=== PATIENT | male | born 1960 | race Caucasian/White ===

== ENCOUNTER 2016-09-24 12:20 | Outpatient (RCR) | payer BC ==
[~2016-09-24 12:20] MED LIST: ASPI325T6 PO; CRESTOR40 MG PO; NORCO 325 MG-7.1 TAB PO; NORVASC 5MG5 MG/TAB PO; SYNTHROID 0.0.025 MG PO; ZESTRIL 10MG10 MG PO
== END 2016-09-27 12:45 | disposition still patient (30) ==
LOC: COL.CR 12:20
DX: Z48.812 Encounter for surgical aftercare following surgery on the circulatory system (principal); Z95.5 Presence of coronary angioplasty implant and graft

== ENCOUNTER 2017-04-12 11:25 | Day surgery (SDC) | payer BC ==
[~2017-04-12] VITALS: Ht 182.9 cm; Wt 95.9 kg
[2017-04-12 12:02] VITALS: BP 118/80; PULSE 59; TEMP 98.1
[2017-04-12] MEDS ORDERED: PLAVIX 75MG TAB75 MG PO (12:11)
[2017-04-12] MEDS ORDERED: LIPITOR 40MG TA40 MG PO (12:12)
[2017-04-12] MEDS ORDERED: COREG 6.256.25 MG/TA PO (12:12)
[2017-04-12] MEDS ORDERED: ZESTRIL 20MG TA20 MG PO (12:13)
[2017-04-12] MEDS ORDERED: ASPIRIN 81M81 MG/TA2 PO (12:13)
[2017-04-12] MEDS ORDERED: OMEGA-3 1000 MG1 CAP PO (12:14)
[2017-04-12] MEDS ORDERED: PHARMASSURE SA160 MG PO (12:15)
[2017-04-12 13:42] VITALS: BP 109/70; PULSE 68; TEMP 98.4
[2017-04-12 14:00] VITALS: BP 103/73; PULSE 59
[2017-04-12 14:15] VITALS: BP 115/75; PULSE 58
[2017-04-12 14:58] VITALS: BP 115/73; PULSE 53
== END 2017-04-12 14:35 | disposition home or self-care (01) ==
LOC: SDCO 11:25
DX: D12.3 Benign neoplasm of transverse colon (principal); D12.4 Benign neoplasm of descending colon; D12.0 Benign neoplasm of cecum; D12.2 Benign neoplasm of ascending colon; K57.30 Diverticulosis of large intestine without perforation or abscess without bleeding; K64.0 First degree hemorrhoids; I25.10 Atherosclerotic heart disease of native coronary artery without angina pectoris; I10 Essential (primary) hypertension; E78.00 Pure hypercholesterolemia, unspecified; Z86.010 Personal history of colon polyps; Z79.01 Long term (current) use of anticoagulants; Z95.5 Presence of coronary angioplasty implant and graft
CPT/HCPCS: OP; J2250; J3010; J7030

== ENCOUNTER 2021-02-12 06:56 | Day surgery (SDC) | payer BC ==
[2021-02-12] VITALS (13 sets, daily range): BP systolic 103–151; BP diastolic 56–88; PULSE 51–65; TEMP 98
[~2021-02-12] VITALS: Ht 183 cm; Wt 106.6 kg
[~2021-02-12 06:56] MED LIST changes: +ASPIRIN 81M81 MG/TA2 PO; +COREG 6.256.25 MG/TA PO; +LIPITOR 40MG TA40 MG PO; +OMEGA-3 1000 MG1 CAP PO; +PHARMASSURE SA160 MG PO; +PLAVIX 75MG TAB75 MG PO; +ZESTRIL 20MG TA20 MG PO
[2021-02-12 07:53] LABS: HEMOGLOBIN 14.3 g/dl (13.5-18.0); MEAN CELL VOLUME 91 fl (80.0-100.0); MEAN CORPUSCULAR HEMOGLOBIN 30 pg (27.0-31.0); MEAN CORPUSCULAR HGB CONC 33 g/dl (33.0-37.0); MEAN PLATELET VOLUME 9.6 fl (7.4-10.4); PLATELET COUNT 266 K/mm3 (130-400); RED BLOOD COUNT 4.75 M/mm3 (4.20-5.60); REDCELL DISTRIBUTION WIDTH-CV 12.8 % (11.5-14.5)
[2021-02-12 07:57] LABS: PROTHROMBIN TIME 10.9 SECONDS (9.7-12.8)
[2021-02-12 07:59] LABS: PARTIAL THROMBOPLASTIN TIME 29.2 SECONDS (26.0-37.0)
[2021-02-12 08:06] LABS: CALCIUM 9.1 mg/dL (8.4-10.2); CREATININE, serum 0.79 (0.66-1.25); POTASSIUM 4.3 mmol/L (3.4-5.0)
[2021-02-12] MEDS ORDERED: CALCIUM CARBON650 M2 PO (08:31)
--- NOTE | 2021-02-12 09:10 | NUR ---
Pt to procedure.report to Garfield Wong.
--- NOTE | 2021-02-12 10:15 | NUR ---
Pt returned from procedure.report from Garfield Wong.
[2021-02-12] MEDS ORDERED: IMDUR 30MG30 MG/TAB PO (10:18)
--- NOTE | 2021-02-12 13:52 | NUR ---
Discharge instructions given to pt.pt verbalizes understanding.INT removed,catheter tip intact.Pt escorted out via wheelchair by this nurse.
== END 2021-02-12 14:45 | disposition home or self-care (01) ==
LOC: COL.CAR 06:56
PROVIDERS: Internal Medicine Cardiovascular Disease
DX: I25.10 Atherosclerotic heart disease of native coronary artery without angina pectoris (principal); K21.9 Gastro-esophageal reflux disease without esophagitis; I10 Essential (primary) hypertension; E78.2 Mixed hyperlipidemia; E78.5 Hyperlipidemia, unspecified; E03.9 Hypothyroidism, unspecified; I42.0 Dilated cardiomyopathy; I25.5 Ischemic cardiomyopathy; R73.01 Impaired fasting glucose; G62.9 Polyneuropathy, unspecified; H52.10 Myopia, unspecified eye; Z95.1 Presence of aortocoronary bypass graft; Z79.82 Long term (current) use of aspirin; Z79.899 Other long term (current) drug therapy; Z79.01 Long term (current) use of anticoagulants
CPT/HCPCS: C1769; J1644; J2250; J3010; Q9967